=== PATIENT | female | born 1945 | race African-American/Black ===

== ENCOUNTER 2021-01-27 07:35 | Inpatient (IN) | payer OTHER ==
[~2021-01-27] VITALS: Ht 165.1 cm; Wt 112.0 kg
[2021-01-27 09:10] LABS: HEMATOCRIT. 34.6 % (36.0-48.0); HEMOGLOBIN. 11.2 g/dL (12.0-16.0); MEAN CORPUSCULAR VOLUME 95.1 fL (81.0-99.0); MEAN PLATELET VOLUME 8.9 fl (7.4-10.4); PLATELET 256 x1000/uL (130-400); RED BLOOD CELL COUNT 3.63 mill/uL (4.2-5.4); RED CELL DISTRIBUTION WIDTH 13.7 % (11.6-14.6)
[2021-01-27 09:15] LABS: CHLORIDE 107 mEq/L (98-107)
[2021-01-27] MEDS ORDERED: CEFTRIAXONE 1 G PREMIX 50 ML IV ONE (09:15)
[2021-01-27 09:18] LABS: INR 0.9
[2021-01-27] MEDS ORDERED: SODIUM CHLORIDE 0.9% 1,000 ML IV ONE ×2 (09:30→10:00)
[2021-01-27 09:51] LABS: PLATELET ESTIMATE NORMAL
[2021-01-27] MEDS ORDERED: VANCOMYCIN 1 G PREMIX 200 ML IV SCH (10:00)
[2021-01-27] MEDS ORDERED: MORPHINE SULFATE 4 MG/ML CPJ (NOT FOR IM USE) IV ONE (12:45)
[2021-01-27] MEDS ORDERED: METRONIDAZOLE 500 MG PREMIX 100 ML IV ONE (12:45)
[2021-01-27 13:27] LABS: CLARITY URINE CLEAR (CLEAR); COLOR URINE YELLOW (YELLOW); KETONES URINE TRACE (NEGATIVE); LEUKOCYTE ESTERASE URINE NEGATIVE (NEGATIVE); NITRITE URINE NEGATIVE (NEGATIVE); OCCULT BLOOD URINE NEGATIVE (NEGATIVE); PH URINE >=9.0 (4.5-8.0); PROTEIN URINE TRACE (NEGATIVE); SPECIFIC GRAVITY URINE 1.025 (1.005-1.030)
[2021-01-27] MEDS ORDERED: SODIUM CHLORIDE 0.9% 1,000 ML IV SCH (13:30)
[2021-01-27] MEDS ORDERED: PIPERACILLIN/TAZOBACTAM 3.375 G in DEXTROSE 5% WATER 50 ML IV SCH (13:30)
[2021-01-27] MEDS ORDERED: ONDANSETRON HCL 4MG/2ML INJ IV PRN (13:30)
[2021-01-27] MEDS ORDERED: ACETAMINOPHEN 325MG TABLET PO PRN (13:30)
[2021-01-27] MEDS ORDERED: PIPERACILLIN/TAZ 3.375G PREMIX 50 ML IV ONE (14:00)
[2021-01-27] MEDS ORDERED: IOHEXOL-350 100 ML BOTTLE ONE (15:19)
[2021-01-27] MEDS ORDERED: PIPERACILLIN/TAZOBACTAM 2.25G in DEXTROSE 5% WATER 50ML IV SCH (18:00)
[2021-01-28] MEDS: PIPERACILLIN/TAZOBACTAM 2.25G in DEXTROSE 5% WATER 50ML IV SCH ×3 (05:05→18:30)
[2021-01-28 08:39] LABS: HEMATOCRIT. 30.5 % (36.0-48.0); MEAN PLATELET VOLUME 8.7 fl (7.4-10.4); PLATELET 234 x1000/uL (130-400); RED BLOOD CELL COUNT 3.12 mill/uL (4.2-5.4)
[2021-01-28] MEDS ORDERED: LORAZEPAM 2MG/ML CPJ IV PRN (09:45)
[2021-01-28 10:30] VITALS: BP 151/113
[2021-01-28 12:00] VITALS: BP 130/100
[2021-01-28] MEDS ORDERED: SODIUM POLYSTYRENE SULFONATE 15 G/60 ML BOT PO ONE (12:15)
[2021-01-28] MEDS ORDERED: CALCIUM GLUCONATE 100MG/ML 10ML VIAL IV STA (13:17)
[2021-01-28] MEDS ORDERED: DEXTROSE 50% WATER 50ML SYRINGE IV STA (13:17)
[2021-01-28] MEDS ORDERED: SODIUM POLYSTYRENE SULFONATE 15 G/60 ML BOT PO NR (14:00)
[2021-01-28] MEDS ORDERED: SODIUM BICARBONATE 8.4% 1 MEQ/ML 50ML SYR IV SCH ×2 (14:00→16:00)
[2021-01-28] MEDS ORDERED: CALCIUM GLUCONATE 1GM PREMIX 50 ML IV SCH (15:00)
[2021-01-28] MEDS ORDERED: INSULIN REGULAR (HUMULIN R) UD 100 UNITS/ML SYR IV SCH (15:00)
[2021-01-28 16:00] VITALS: BP 146/95
[2021-01-28] MEDS ORDERED: SODIUM POLYSTYRENE SULFONATE 15 G/60 ML BOT PO SCH (16:00)
[2021-01-28 16:32] LABS: PLATELET ESTIMATE NORMAL
[2021-01-28 17:09] LABS: BG BASE EXCESS -4.8 mmol/L (-2.0-2.0); BG CARBOXYHEMOGLOBIN 0.1 % (0.5-1.5); BG DEOXYHEMOGLOBIN 7.6 % (0.0-5.0); BG FRACTION INSPIRED OXYGEN 28; BG HCO3 ACT 19.4 mmol/L (22.0-26.0); BG METHEMOGLOBIN 0.1 % (0.0-1.5); BG OXYGEN SATURATION 92.4 % (92.0-98.5); BG OXYHEMOGLOBIN 92.2 % (94.0-97.0); BG PCO2 32.7 mmHg (35.0-45.0); BG PO2 65.8 mmHg (75.0-100.0); BG SAMPLE SITE RIGHT RADIAL; BG TOTAL HEMOGLOBIN 11.3 g/dL (12.0-18.0); BG VENT MODE NASAL CANNULA
[2021-01-28] MEDS ORDERED: HYDROCODONE/ACETAMINOPHEN 5/325MG TABLET PO PRN (18:45)
[2021-01-28] MEDS ORDERED: GABA-532 PO (19:52)
[2021-01-28] MEDS ORDERED: MELO-106 PO (19:52)
[2021-01-28] MEDS ORDERED: TOPUD MT (19:52)
[2021-01-28] MEDS ORDERED: POLY119P3 PO (19:52)
[2021-01-28] MEDS ORDERED: DOCU240C26 PO (19:52)
[2021-01-28] MEDS ORDERED: OMEP20CA14 PO (19:52)
[2021-01-28] MEDS ORDERED: ASPI-1497 PO (19:52)
[2021-01-28 20:00] VITALS: BP 133/70
[2021-01-28 20:57] VITALS: BP 133/70
[2021-01-28 21:23] LABS: HEMATOCRIT. 30.3 % (36.0-48.0); HEMOGLOBIN. 10.1 g/dL (12.0-16.0); MEAN CORPUSCULAR HEMOGLOBIN 31.3 pg (28.0-32.0); MEAN CORPUSCULAR VOLUME 94.1 fL (81.0-99.0); MEAN PLATELET VOLUME 9.3 fl (7.4-10.4); PLATELET 275 x1000/uL (130-400); RED BLOOD CELL COUNT 3.22 mill/uL (4.2-5.4); RED CELL DISTRIBUTION WIDTH 13.6 % (11.6-14.6)
[2021-01-28 21:26] LABS: CHLORIDE 104 mEq/L (98-107)
[2021-01-28 21:53] LABS: CREATINE KINASE 6278 IU/L (26-192)
[2021-01-28] MEDS ORDERED: SODIUM BICARBONATE 100 MEQ in DEXTROSE 5% WATER 1,000 ML IV SCH (22:00)
[2021-01-28 22:11] LABS: PLATELET ESTIMATE NORMAL
[2021-01-28] MEDS ORDERED: VANCOMYCIN 1 G PREMIX 200 ML IV SCH (23:00)
[2021-01-29 13:33] LABS: HEPATITIS B SURFACE ANTIGEN NEGATIVE
[2021-01-29 14:03] LABS: HEPATITIS A AB IGM NEGATIVE (NEGATIVE)
== END 2021-01-29 00:25 | disposition short-term general hospital (02) | DRG 871 ==
LOC: ER 07:35 → MICUSO 13:10 → EDBEDREQ 13:32 → EDBEDREQTM 13:32 → CANRESERV 19:21 → ENRESERV 19:21 → 7EST 01-28 07:41
PROVIDERS: ADMIT Internal Medicine; ATTEND Internal Medicine
DX: A41.9 Sepsis, unspecified organism (principal); G92 Toxic encephalopathy; N17.0 Acute kidney failure with tubular necrosis; E44.0 Moderate protein-calorie malnutrition; Z68.41 Body mass index [BMI] 40.0-44.9, adult; N13.30 Unspecified hydronephrosis; I10 Essential (primary) hypertension; K21.9 Gastro-esophageal reflux disease without esophagitis; Z96.643 Presence of artificial hip joint, bilateral; R16.0 Hepatomegaly, not elsewhere classified; R74.01 Elevation of levels of liver transaminase levels; E87.5 Hyperkalemia; K80.20 Calculus of gallbladder without cholecystitis without obstruction; R65.20 Severe sepsis without septic shock; K52.9 Noninfective gastroenteritis and colitis, unspecified; N28.1 Cyst of kidney, acquired; Z20.822 Contact with and (suspected) exposure to COVID-19
CPT/HCPCS: 36415; 36600; 71045; 71275; 73523; 74177; 76705; 80048; 80053; 80076; 81003; 82140; 82375; 82550; 82805; 83605; 83880; 84145; 84484; 85025; 85379; 86705; 86709; 86803; 87340; 93005; 93970; 99291; J0610; J0696; J1815; J2060; J2270; J2543; J3370; J3490; J7060; J7070; Q9967; U0003; U0005; A4315